=== PATIENT | male | born 1975 | race Two or more races ===

== ENCOUNTER 2019-05-18 19:51 | Observation (INO) | payer OTHER ==
[~2019-05-18] VITALS: Ht 167.6 cm; Wt 104.3 kg
[2019-05-18 20:09] VITALS: BP 148/79
--- NOTE | 2019-05-18 20:28 | NUR ---
44 Y/O MALE C/O LEFT SIDED ABD PAIN/ NAUSEA/ DIARRHEA X2 DAYS. PAIN IS 9/10 SHARP PAIN LOCATED ONLY ON LEFT SIDE OF ABD. PT IS VOMITING AT BEDSIDE, SITTING UPRIGHT. RESP EVEN AND UNLABORED. LUNG SOUNDS CLEAR IN BILAT LOBES. BOWEL SOUNDS NORMOACTIVE IN ALL QUADRANTS. ABD SOFT/ TENDER UPON PALPATION. AAOX4. MUCOUS MEMBRANES PINK AND MOIST. CAP REFILL <3 PMH: HTN NKA
--- NOTE | 2019-05-18 20:48 | NUR ---
Dr. Boyd examining patient.
[2019-05-18] MEDS ORDERED: NACL 0.9% 1,000 ML IV ONE (20:53)
[2019-05-18] MEDS ORDERED: KETOROLAC 30 MG/ML VIAL IVP ONE (20:55)
[2019-05-18] MEDS ORDERED: ONDANSETRON 4 MG/2 ML VIAL IVP ONE (20:55)
--- NOTE | 2019-05-18 21:25 | NUR ---
PT TAKEN TO CT
[2019-05-18 21:26] LABS: BASOPHILS # (AUTO) 0.1 K/uL (0.00-0.22); BASOPHILS % (AUTO) 0.6 % (0.0-2.0); EOSINOPHILS % (AUTO) 0.1 % (0.0-4.0); HEMATOCRIT 45.3 % (36-52); LYMPHOCYTES # (AUTO) 1.6 K/uL (2.0-11.5); LYMPHOCYTES % (AUTO) 8.8 % (20.5-51.1); MEAN CORPUSCULAR HEMOGLOBIN 31 pg (27-31); MEAN CORPUSCULAR HGB CONC 33 g/dL (33-37); MEAN CORPUSCULAR VOLUME 94.3 fL (80-94); MONOCYTES % (AUTO) 5.3 % (1.7-9.3); NEUTROPHILS # (AUTO) 15.5 K/uL (1.8-7.7); NEUTROPHILS % (AUTO) 85.2 % (42.2-75.2); PLATELET COUNT (AUTO) 244 K/uL (140-450); RED CELL DISTRIBUTION WIDTH 13.1 % (11.6-13.7)
--- NOTE | 2019-05-18 21:31 | NUR ---
RETURN FROM CT
[2019-05-18 21:37] LABS: ALBUMIN 4.2 g/dL (3.4-5.0); ANION GAP 17.5 (8-16); CARBON DIOXIDE 23.2 mmol/L (21-32); CREATININE 1.1 mg/dL (0.6-1.3); POTASSIUM 3.7 mmol/L (3.5-5.1); TOTAL BILIRUBIN 0.6 mg/dL (0.0-1.0)
[2019-05-18 21:47] LABS: WHITE BLOOD COUNT (AUTO) 18.2 K/uL (4.8-10.8)
[2019-05-18] MEDS ORDERED: metroNIDAZOLE 500 MG/NS PREMIX 100 ML IV ONE (22:00)
[2019-05-18] MEDS ORDERED: MORPHINE SULFATE 2 MG/ML SYR IVP ONE (22:10)
[2019-05-18] MEDS ORDERED: ACETAMINOPHEN 325 MG TAB PO PRN (22:10)
--- NOTE | 2019-05-18 22:58 | NUR ---
Patient will be admitted to care of DR BHAKTA. Admited to M/S. Will go to room 119B. Belongings list completed. Report to JESSICA KHOURY.
[2019-05-18] MEDS: LACTATED RINGERS 1,000 ML IV SCH (23:22)
--- NOTE | 2019-05-18 23:57 | NUR ---
ADMITTED 44 YEARS OLD FEMALE FROM ER VIA WHEELCHAIR TO 119B CC: N/V/D, ACUTE GASTROENTERITIS. SEE NURSING ADMISSION ASSESSMENT AND HISTORY. ORIENTED TO ROOM AND UNIT ROUTINES. CALL LIGHT WITHIN REACH.
[2019-05-19] VITALS: BP 137/68
--- NOTE | 2019-05-19 02:00 | NUR ---
SLEEPING WELL. EASILY AROUSABLE. CALL LIGHT WITHIN REACH.
[2019-05-19 03:05] VITALS: BP 129/69
[2019-05-19] MEDS: MORPHINE SULFATE 2 MG/ML SYR IVP PRN ×3 (03:08→22:26)
--- NOTE | 2019-05-19 05:13 | NUR ---
ASLEEP. NO COMPLAINS. CALL LIGHT WITHIN REACH.
[2019-05-19 06:12] LABS: ANION GAP 15.4 (8-16); CARBON DIOXIDE 23.1 mmol/L (21-32); CREATININE 1.1 mg/dL (0.6-1.3); POTASSIUM 3.5 mmol/L (3.5-5.1)
[2019-05-19 06:17] LABS: BASOPHILS # (AUTO) 0.1 K/uL (0.00-0.22); BASOPHILS % (AUTO) 0.4 % (0.0-2.0); EOSINOPHILS % (AUTO) 0.2 % (0.0-4.0); HEMATOCRIT 40.8 % (36-52); HEMOGLOBIN 13.6 g/dL (12.0-18.0); LYMPHOCYTES # (AUTO) 2.7 K/uL (2.0-11.5); LYMPHOCYTES % (AUTO) 17.1 % (20.5-51.1); MEAN CORPUSCULAR HEMOGLOBIN 32 pg (27-31); MEAN CORPUSCULAR HGB CONC 33 g/dL (33-37); MEAN CORPUSCULAR VOLUME 94.9 fL (80-94); MONOCYTES # (AUTO) 1.3 K/uL (0.8-1.0); MONOCYTES % (AUTO) 8.3 % (1.7-9.3); NEUTROPHILS # (AUTO) 11.7 K/uL (1.8-7.7); PLATELET COUNT (AUTO) 230 K/uL (140-450); RED CELL DISTRIBUTION WIDTH 12.9 % (11.6-13.7); WHITE BLOOD COUNT (AUTO) 15.8 K/uL (4.8-10.8)
[2019-05-19] MEDS: ONDANSETRON 4 MG/2 ML VIAL IVP PRN ×2 (06:26→11:52)
--- NOTE | 2019-05-19 07:31 | NUR ---
ENDORSED CARE AT BEDSIDE WITH ORDOÑEZ RN, PATIENT IN STABLE CONDITION.
--- NOTE | 2019-05-19 07:35 | NUR ---
RECEIVED PATIENT FROM CODING AUDITOR NURSE. AOX4, NO C/O PAIN, RESPIRATIONS EVEN AND UNLABORED. NO EPISODES OF N/V/D AT THIS TIME. IV ON THE RIGHT HAND GAUGE 22. WITH IVF OF LR 100CC/HR INFUSING WELL. BED IN LOW POSITION. CALL LIGHT IS WITHIN REACH. WILL CONTINUE TO MONITOR
[2019-05-19 08:00] VITALS: BP 114/61
--- NOTE | 2019-05-19 08:48 | NUR ---
PATIENT HAS BEEN SCREENED AND CATEGORIZED HIGH NUTRITION RISK. PATIENT WILL BE SEEN WITHIN 1-2 DAYS OF ADMISSION. 05/19/19-05/20/[address]
[2019-05-19] MEDS: LACTATED RINGERS 1,000 ML IV SCH ×3 (09:12→23:36)
--- NOTE | 2019-05-19 09:12 | NUR ---
NEW IVF BAG HANGED ORDERED. INFUSING WELL. PT IN STABLE CONDITION
[2019-05-19] MEDS ORDERED: LISI-420 PO (09:38)
[2019-05-19] MEDS ORDERED: SIMV-30 PO (09:39)
[2019-05-19] MEDS ORDERED: SPIR50TA PO (09:40)
[2019-05-19] MEDS ORDERED: BEN10 PO (09:41)
[2019-05-19] MEDS ORDERED: IMO2 PO (09:41)
[2019-05-19] MEDS ORDERED: ONDA8TAB PO ×2 (09:42→09:49)
[2019-05-19] MEDS ORDERED: ESTR1TAB19 PO (09:43)
[2019-05-19] MEDS ORDERED: CHOL400T12 PO (09:45)
[2019-05-19] MEDS ORDERED: OSC500 PO (09:45)
[2019-05-19] MEDS ORDERED: ZOLP10TA1 PO (09:47)
[2019-05-19] MEDS ORDERED: CETI-120 PO (09:49)
--- NOTE | 2019-05-19 11:12 | NUR ---
AWAKE AND ALERT. LYING IN BED. WALKS AROUND THE ROOM AND HALLWAY AT TIMES. IN STABLE CONDITION
--- NOTE | 2019-05-19 11:59 | NUR ---
WITH C/O OF ACHING ABD PAIN 7/10. WITH C/O NAUSEA. MORPHINE IVP AND ZOFRAN IVP GIVEN ORDERED. WILL REASSESS IN 1 HOUR
--- NOTE | 2019-05-19 13:15 | NUR ---
DISCHARGE PLANNING: THIS IS A 44 Y/O MALE PATIENT FROM HOME, WHO CAME IN DUE TO LEFT LOWER QUADRANT ABDOMINAL PAIN, DIARRHEA AND VOMITING. PAST MEDICAL HISTORY INCLUDE HTN. INITIAL DIAGNOSIS OF ACUTE GASTROENTERITIS. CURRENT LABS INCLUDE WBC 15.8, H/H 13.6/40.8, NA/K 141/3.5, BUN/CREA 29/1.1. MRSA NARES PENDING. GI CONSULT PENDING. CT OF ABD/PELVIS SHOWED OCCASIONAL COLONIC DIVERTICULA WITH NO INFLAMMATORY CHANGES. DC PLAN BACK TO HOME ONCE STABLE. Addendum: 05/20/19 at 1219 by Jacquelin Dumont DC PLANNING: ADVANCED DIET TO FULL LIQUID , ABLE TO TOLERATED CLEAR LIQUID, PAIN IMPROVED, MD DISCUSSED WITH GI AND TO FOLLOW UP OUT PATIENT FOR COLONOSCOPY .DC PLAN TO GO HOME AND FOLLOW UP WITH PCP. STABLE FOR DISCHARGE.
--- NOTE | 2019-05-19 13:20 | NUR ---
05/19/19 RD INITIAL ASSESSMENT COMPLETED PLEASE REFER TO NUTRITION ASSESSMENT UNDER CARE ACTIVITY FOR ESTIMATED NUTRITIONAL NEEDS. 1. CONTINUE CLEAR LIQUID DIET TOLERATED 2. RECOMMEND ENSURE CLEAR BID 3. IF/WHEN MEDICALLY STABLE CONSIDER ADVANCING TO BRAT DIET 4. RD TO FOLLOW-UP 2-3 DAYS, HIGH RISK JENA SUTTON RD
[2019-05-19] MEDS ORDERED: DICYCLOMINE 10 MG CAP PO SCH (13:40)
--- NOTE | 2019-05-19 13:40 | NUR ---
Dr. Mckeon at bedside. Explained to Pt about plan of care. Pt verbalized understanding.
[2019-05-19] MEDS ORDERED: BOWEL EVACUANT DRINK 4,000 ML PDS PO SCH (13:50)
[2019-05-19] MEDS ORDERED: DICYCLOMINE 10 MG CAP PO PRN (13:54)
[2019-05-19 16:00] VITALS: BP 118/64
--- NOTE | 2019-05-19 19:15 | NUR ---
ENDORSED TO INTE[employer] PROGRAMS DIRECTOR NURSE FOR CONTINUITY OF CARE. PT IN STABLE CONDITION
--- NOTE | 2019-05-19 19:16 | NUR ---
RECEIVED PATIENT FROM BATCH MAKER NURSE. AOX4 AMBULATORY PATIENT IS ANXIOUS,WALKING BACK AND FORTH TOWARDS THE NURSE'S STATION. NO C/O PAIN, RESPIRATIONS EVEN AND UNLABORED. NO EPISODES OF N/V/D AT THIS TIME. LR AT 100 ML INFUSING ON THE RIGHT HAND IV ON THE RIGHT HAND GAUGE 22. CALL LIGHT IS WITHIN REACH. WILL CONTINUE TO MONITOR Addendum: 05/19/19 at 1955 by Dimple Waters RN RECEIVED FROM AM SHIFT NURSE
--- NOTE | 2019-05-19 19:35 | NUR ---
INFORMED PATIENT THAT LR IVF NEEDS TO BE CHANGED. PT REFUSED AT THIS TIME AND SAID TO LET HIM REST FOR A WHILE AND NOT PUT THE IVF FOR NOW. EXPLAINED THE RISKS OF NOT CONTINUING THE LR IVF AND BENEFITS PATIENT VERBALIZED UNDERSTANDING. PATIENT SAID TO PUT THE IVF LATER. WILL FOLLOW UP WITH HIM LATER.
--- NOTE | 2019-05-19 19:36 | NUR ---
PER ENDORSEMENT DR. BRUCE HAS NOT MADE ROUNDS YET TO PT, AND PT HAS NOT EATEN FOR 2 DAYS ONLY TAKING CLEAR LIQS. GOLYTELY STARTED AT 2: 30 PM TODAY. NO CONSENT SIGNED TO POSS.COLONOSCOPY YET THERE IS NO ORDER YET, WAITING FOR DR. BRUCE
--- NOTE | 2019-05-19 19:41 | NUR ---
PT IS NOTED TO ANXIOUS WALKING AMBULATORY , EXPRESSED THAT " HE WILL BLOW RIGHT NOW" .EXPLAINED THE RISKS ON WALKING AROUND. PT VERBALIZED UNDERSTANDING.
--- NOTE | 2019-05-19 21:40 | NUR ---
PT C/O OF PAIN ON THE LLQ ABDOMEN. WILL INFORM BUSINESS OFFICE MANAGER DR. DR REYNAGA
--- NOTE | 2019-05-19 21:51 | NUR ---
DR. REYNAGA CALLED AND INFORMED PT HAS LLQ PAIN 07/27, AND INFORMED HIM THAT THE MORPHINE WAS D/C ' EARLIER. PER DR. REYNAGA RESUME THE MORPHINE 2MG Q4 FOR MODERATE PAIN
[2019-05-19] MEDS ORDERED: MORPHINE SULFATE 2 MG/ML SYR ONE (22:02)
[2019-05-20] VITALS: BP 117/65
--- NOTE | 2019-05-20 06:35 | NUR ---
PT AO X 4, AMBULATORY, PT NO COMPLAINTS OF PAIN AT THIS TIME. YEMI BRUCE'S CONSULT, STILL AWAITING ORDER FOR POSS. COLONOSCOPY. WILL ENDORSE TO NEXT SHIFT
--- NOTE | 2019-05-20 07:30 | NUR ---
RECEIVED BEDSIDE REPORT FROM NIGHTSHIFT NURSE. PT RESTING IN BED. ABLE TO MAKE NEEDS KNOWN. RESPIRATIONS EVEN AND UNLABORED WITH NO SOB OR RESPIRATORY DISTRESS. SKIN WARM AND DRY TO TOUCH. IV SITE IN RIGHT HAND 22G IS CLEAN, DRY, AND INTACT. SAFETY MEASURES IN PLACE. WILL CONTINUE TO MONITOR.
[2019-05-20 08:00] VITALS: BP 109/63
[2019-05-20] MEDS: MORPHINE SULFATE 2 MG/ML SYR IVP PRN (09:34)
--- NOTE | 2019-05-20 09:34 | NUR ---
PT CALLED AND COMPLAINED OF SEVERE PAIN. PRN PAIN MEDICATION ADMINISTERED PRESCRIBED PER MD ORDER. PT VERBALIZED UNDERSTANDING. SAFETY MEASURES IN PLACE. WILL CONTINUE TO MONITOR
--- NOTE | 2019-05-20 10:15 | NUR ---
FOLLOWED UP WITH DR. Lucina BRUCE REGARDING THE CONSULT. NO ANSWER, VOICEMAIL MESSAGE LEFT ON HIS CELLPHONE. AWAITING FOR CALL BACK, RABIA ASSIGNED MADE AWARE. DR. BRUCE'S OFC IS CLOSED, CAN'T LEAVE A MESSAGE.
[2019-05-20] MEDS ORDERED: metroNIDAZOLE 500 MG TAB PO SCH (10:50)
[2019-05-20] MEDS ORDERED: CIPROFLOXACIN 250 MG TAB PO SCH (10:50)
--- NOTE | 2019-05-20 12:25 | NUR ---
WENT OVER DISCHARGE INSTRUCTIONS WITH PATIENT. PT SIGNED APPROPRIATE DOCUMENTS. INSTRUCTED PT TO VISIT ED FOR ANY SIGNS OF DISTRESS. PT VERBALIZED UNDERSTANDING. PT ALREADY RECEIVED FLU VACCINE AND DID NOT QUALIFY FOR PNA VACCINE. REMOVED INTACT IV CANNULA, ID BRACELET, AND ALLERGY BAND. PT CHANGED INTO HIS OWN CLOTHING AND GATHERED HIS BELONGINGS. PT ESCORTED OUT. PT IS STABLE
[2019-05-24] MEDS ORDERED: ESTRADIOL 1 MG TAB PO SCH (09:00)
== END 2019-05-20 12:25 | disposition still patient (30) ==
LOC: MED 19:51 → MTU 22:08 → INTOOBSV 22:08 → MTU 22:44
PROVIDERS: ADMIT Hospitalist; ATTEND Hospitalist
DX: K57.90 Diverticulosis of intestine, part unspecified, without perforation or abscess without bleeding (principal); R11.2 Nausea with vomiting, unspecified; D72.829 Elevated white blood cell count, unspecified; I10 Essential (primary) hypertension; E78.5 Hyperlipidemia, unspecified; E55.9 Vitamin D deficiency, unspecified
CPT/HCPCS: 36415; 74176; 80048; 80053; 85025; 87081; 96361; 96365; 96375; 96376; 99285; G0378; J1885; J2270; J2405; J3490; J7120; 96374

== ENCOUNTER 2020-11-09 12:20 | Emergency (ER) | payer OTHER ==
[~2020-11-09] VITALS: Ht 180.3 cm; Wt 115.2 kg
[~2020-11-09 12:20] MED LIST: BEN10 PO; CETI10TA81 PO; CHOL400T12 PO; CIPR250T6 PO; ESTR1TAB19 PO; IMO2 PO; LISI-487 PO; METR500T1 PO; ONDA8TAB87 PO; OSC500 PO; SIMV-30 PO; SPIR50TA PO; ZOLP10TA1 PO
[2020-11-09 13:14] VITALS: BP 164/93
--- NOTE | 2020-11-09 13:22 | NUR ---
PT TO WAIT IN LOBBY
[2020-11-09] MEDS ORDERED: NACL 0.9% 1,000 ML IV ONE (14:20)
[2020-11-09] MEDS ORDERED: ONDANSETRON 4 MG/2 ML VIAL IVP ONE (14:20)
[2020-11-09] MEDS ORDERED: MORPHINE SULFATE 4 MG/ML SYR IVP ONE (14:20)
[2020-11-09 14:28] LABS: BASOPHILS # (AUTO) 0.1 K/uL (0.00-0.22); BASOPHILS % (AUTO) 0.8 % (0.0-2.0); EOSINOPHILS # (AUTO) 0.1 K/uL (0-0.4); EOSINOPHILS % (AUTO) 0.7 % (0.0-4.0); HEMATOCRIT 43.3 % (36-48); HEMOGLOBIN 14.4 g/dL (12.0-16.0); LYMPHOCYTES # (AUTO) 0.8 K/uL (2.0-11.5); LYMPHOCYTES % (AUTO) 4.6 % (20.5-51.1); MEAN CORPUSCULAR HEMOGLOBIN 31 pg (27-31); MEAN CORPUSCULAR HGB CONC 33 g/dL (33-37); MEAN CORPUSCULAR VOLUME 92.9 fL (80-94); MONOCYTES # (AUTO) 0.5 K/uL (0.8-1.0); MONOCYTES % (AUTO) 2.7 % (1.7-9.3); NEUTROPHILS # (AUTO) 15.8 K/uL (1.8-7.7); NEUTROPHILS % (AUTO) 91.2 % (42.2-75.2); PLATELET COUNT (AUTO) 246 K/uL (140-450); RED BLOOD CELL COUNT(AUTO) 4.66 MIL/uL (4.20-5.40); RED CELL DISTRIBUTION WIDTH 13.2 % (11.6-13.7); WHITE BLOOD COUNT (AUTO) 17.3 K/uL (4.8-10.8)
[2020-11-09 14:45] LABS: ALBUMIN 4.1 g/dL (3.4-5.0); ANION GAP 14.7 (8-16); CARBON DIOXIDE 23.8 mmol/L (21-32); CREATININE 1.2 mg/dL (0.6-1.3); POTASSIUM 4.5 mmol/L (3.5-5.1); TOTAL BILIRUBIN 0.5 mg/dL (0.0-1.0)
--- NOTE | 2020-11-09 14:49 | NUR ---
45 Y/O M BIB SELF FROM HOME, PATIENT PRESENTS TO ED WITH C/O ABD PAIN FOR 1 WEEK. PT STATES HE WAS JUST SEEN PREVIOUSLY FOR SAME C/O. DENIES N/V/D OR CONSTIPATION; SKIN IS PINK/WARM/DRY; AAOX4 WITH EVEN AND STEADY GAIT; LUNGS CLEAR BL; HR EVEN AND REGULAR; PT DENIES ANY FEVER, CP, SOB, OR COUGH AT THIS TIME; PATIENT STATES PAIN OF 10/10 AT THIS TIME; PATIENT POSITIONED FOR COMFORT; HOB ELEVATED; BEDRAILS UP X2; BED DOWN. ER MD MADE AWARE OF PT STATUS. PMH: PREDIABETES MED: DENIES NKA
[2020-11-09 15:07] LABS: APPEARANCE,URINE CLEAR (CLEAR); BILIRUBIN,URINE NEGATIVE (NEGATIVE); BLOOD, URINE TRACE-I (NEGATIVE); COLOR,URINE YELLOW (YELLOW); LEUKOCYTE ESTERASE ,URINE NEGATIVE (NEGATIVE); NITRITE, URINE NEGATIVE (NEGATIVE); UGLUCOSE 3+ (NEGATIVE)
[2020-11-09] MEDS ORDERED: metroNIDAZOLE 500 MG/NS PREMIX 100 ML IV ONE (15:40)
[2020-11-09 15:42] LABS: RBC,URINE 0-5 /HPF (0-5); WBC,URINE NONE SEEN /HPF (0-5)
--- NOTE | 2020-11-09 15:45 | NUR ---
PATIENT RESTING IN BED, PAIN HAS DECREASED TO 2/10, NO N/V PRESENT AT THIS TIME
[2020-11-09] MEDS ORDERED: cefTRIAXone 1,000 MG VIAL ONE (16:33)
[2020-11-09 16:44] LABS: AMYLASE 42 U/L (25-115); LIPASE 107 U/L (73-393)
[2020-11-09] MEDS ORDERED: ALUMINUM HYD/MAG/SIMETHICONE 30 ML UDC PO ONE (16:50)
[2020-11-09] MEDS ORDERED: FAMOTIDINE 20 MG/2 ML VIAL IVP ONE (16:50)
--- NOTE | 2020-11-09 18:09 | NUR ---
CARMEND RE-EVALUATING PATIENT AT THIS TIME. PATIENT RESTING COMFORTABLY IN BED, NO ACUTE CONCERNS AT THIS TIS
[2020-11-09 18:19] VITALS: BP 159/72
--- NOTE | 2020-11-09 18:20 | NUR ---
Patient discharged with v/s stable. Written and verbal after care instructions given and explained. Patient verbalized understanding. Ambulatory with steady gait. All questions addressed prior to discharge. Advised to follow up with PMD.
== END 2020-11-09 18:20 | disposition home or self-care (01) ==
LOC: MED 12:20 → EDSEX 12:20 → MED 18:20
DX: K29.70 Gastritis, unspecified, without bleeding (principal); R11.2 Nausea with vomiting, unspecified; Z90.49 Acquired absence of other specified parts of digestive tract
CPT/HCPCS: 36415; 74177; 80053; 81001; 82150; 83690; 84703; 85025; 96361; 96365; 96367; 96375; 99285; J0696; J2270; J2405; J3490; J7030; Q9967

== ENCOUNTER 2020-11-12 03:14 | Emergency (ER) | payer OTHER ==
[~2020-11-12] VITALS: Ht 180.3 cm; Wt 113.4 kg
[2020-11-12 03:15] VITALS: BP 140/79
--- NOTE | 2020-11-12 03:17 | NUR ---
PT BORUGHT TO BED 12 VIA JONATHAN SHUKLA
[2020-11-12] MEDS ORDERED: NACL 0.9% 1,000 ML IV ONE (03:45)
--- NOTE | 2020-11-12 04:04 | NUR ---
PATIENT AMBULATED TO THE BATHROOM
[2020-11-12 04:20] LABS: ALBUMIN 3.9 g/dL (3.4-5.0); ANION GAP 16.3 (8-16); CARBON DIOXIDE 24.6 mmol/L (21-32); CREATININE 1.2 mg/dL (0.6-1.3); POTASSIUM 3.9 mmol/L (3.5-5.1); TOTAL BILIRUBIN 0.3 mg/dL (0.0-1.0)
[2020-11-12] MEDS ORDERED: KETOROLAC 15 MG/ML VIAL IVP ONE (05:00)
[2020-11-12] MEDS ORDERED: DICYCLOMINE HCL LIQUID 20 MG, ALUMINUM HYD/MAG/SIMETHICONE 30 ML, LIDOCAINE VISCOUS 2% ... PO ONE ×3 (05:00)
[2020-11-12] MEDS ORDERED: DICYCLOMINE HCL LIQUID 10 MG/5 ML UDC ONE (05:06)
[2020-11-12] MEDS ORDERED: ALUMINUM HYD/MAG/SIMETHICONE 30 ML UDC ONE (05:06)
[2020-11-12] MEDS ORDERED: BEN10 PO (06:10)
[2020-11-12 06:30] VITALS: BP 133/63
--- NOTE | 2020-11-12 06:30 | NUR ---
Patient discharged with v/s stable. Written and verbal after care instructions given and explained. Patient alert, oriented and verbalized understanding of instructions. Ambulatory with steady gait. All questions addressed prior to discharge. ID band AND IV ACCESS removed. Patient advised to follow up with PMD. Rx of BENTYL given. Patient educated on indication of medication including possible reaction and side effects. Opportunity to ask questions provided and answered.
== END 2020-11-12 06:30 | disposition home or self-care (01) ==
LOC: MED 03:14
DX: R10.10 Upper abdominal pain, unspecified (principal); I10 Essential (primary) hypertension; Z90.49 Acquired absence of other specified parts of digestive tract; Z79.899 Other long term (current) drug therapy
CPT/HCPCS: 36415; 80053; 83690; 93005; 96361; 96374; 99284; J1885; J7030

== ENCOUNTER 2022-03-27 08:10 | Day surgery (SDC) | payer OTHER ==
[~2022-03-27] VITALS: Ht 180.3 cm; Wt 106.6 kg
[2022-03-27] MEDS ORDERED: MIDAZOLAM 2 MG/2 ML VIAL ONE (08:49)
[2022-03-27] MEDS ORDERED: fentaNYL citrate 0.05 MG/ML VIAL ONE ×2 (08:49)
[2022-03-27] MEDS ORDERED: diphenhydrAMINE 50 MG/ML VIAL ONE (08:49)
[2022-03-27] MEDS ORDERED: LIDOCAINE 2% 100 MG/5 ML UJET TP ONE (08:49)
[2022-03-27] MEDS ORDERED: fentaNYL citrate 0.05 MG/ML VIAL IVP ONE (10:00)
[2022-03-27] MEDS ORDERED: MIDAZOLAM 2 MG/2 ML VIAL IVP ONE (10:00)
[2022-03-27] MEDS ORDERED: diphenhydrAMINE 50 MG/ML VIAL IVP ONE (10:00)
== END 2022-03-27 10:25 | disposition home or self-care (01) ==
LOC: MOR 08:10 → MMU 08:14 → MOR 10:25
PROVIDERS: ATTEND Internal Medicine Gastroenterology
DX: K52.9 Noninfective gastroenteritis and colitis, unspecified (principal); D12.3 Benign neoplasm of transverse colon; D12.0 Benign neoplasm of cecum; K62.1 Rectal polyp; R15.2 Fecal urgency; E11.9 Type 2 diabetes mellitus without complications; F32.A Depression, unspecified; E78.00 Pure hypercholesterolemia, unspecified; Z79.899 Other long term (current) drug therapy; F17.210 Nicotine dependence, cigarettes, uncomplicated; F41.9 Anxiety disorder, unspecified; Z20.822 Contact with and (suspected) exposure to COVID-19
CPT/HCPCS: 45380; 45385; 87426; J1200; J2250; J3010